=== PATIENT | female | born 1985 | race Caucasian/White ===

== ENCOUNTER 2018-01-27 18:06 | Emergency (ER) | payer OTHER ==
[~2018-01-27] VITALS: Ht 162.6 cm; Wt 121.6 kg
[2018-01-27 18:28] VITALS: Ht 162.6 cm; Wt 121.6 kg
[2018-01-27 19:50] VITALS: BP 144/71
== END 2018-01-27 19:50 | disposition home or self-care (01) ==
LOC: ED 18:06
DX: G43.909 Migraine, unspecified, not intractable, without status migrainosus (principal)
CPT/HCPCS: J1885

== ENCOUNTER → 2018-02-09 | Outpatient (CLI) | payer OTHER | END | disposition home or self-care (01) | LOC: MI 01-23 09:00 | PROC: B030ZZZ Magnetic Resonance Imaging (MRI) of Brain (ICD-10-PCS; principal; 2018-02-09) | DX: G93.2 Benign intracranial hypertension (principal) ==

== ENCOUNTER → 2018-05-02 | Outpatient (CLI) | payer OTHER ==
[2018-05-02 08:26] LABS: PLATELET COUNT 365 x10^3mcL (130-400)
[2018-05-02 08:35] LABS: CALCIUM 8.2 mg/dL (8.5-10.1); CARBON DIOXIDE 25.4 mmol/L (21-32); CHLORIDE SERUM 106 mmol/L (98-107); CREATININE SERUM 0.8 mg/dL (0.6-1.0); GFR1 > 60 mL/min; GLUCOSE SERUM 102 mg/dL (74-106); POTASSIUM SERUM 4.1 mmol/L (3.5-5.1); SODIUM SERUM 140 mmol/L (136-145)
[2018-05-02 08:36] LABS: RED CELL DISTRIBUTION WIDTH 21.3 % (11.5-14.5)
[2018-05-02 08:40] LABS: ALBUMIN 3.6 g/dL (3.4-5.0); ALKALINE PHOSPHATASE 56 U/L (46-116); ALT/SGPT 16 U/L (14-59); AST/SGOT 11 U/L (15-37); BILIRUBIN TOTAL 0.32 mg/dL (0.20-1.00); TOTAL PROTEIN, SERUM 7.6 g/dL (6.4-8.2)
[2018-05-02 08:49] LABS: BAND NEUTROPHIL 0 % (0-10); BASOPHIL 1 % (0-2); MONOCYTE 4 % (0-7); SEGMENTED NEUTROPHILS 55 % (37-75)
[2018-05-02 08:50] LABS: rbc morphology (normal/abnorm) ABNORMAL (NORMAL)
[2018-05-02 08:51] LABS: PLATELET MORPHOLOGY PLATELETS INCREASED
== END | disposition home or self-care (01) ==
LOC: LB 07:48
DX: N92.6 Irregular menstruation, unspecified (principal)

== ENCOUNTER 2018-05-24 06:29 | Emergency (ER) | payer OTHER ==
[~2018-05-24] VITALS: Ht 162.6 cm; Wt 122.9 kg
[2018-05-24 06:35] VITALS: Ht 162.6 cm; Wt 122.9 kg
[2018-05-24 07:53] VITALS: BP 144/94
== END 2018-05-24 07:53 | disposition home or self-care (01) ==
LOC: ED 06:29
DX: S61.210A Laceration without foreign body of right index finger without damage to nail, initial encounter (principal); W26.8XXA Contact with other sharp object(s), not elsewhere classified, initial encounter; Y93.89 Activity, other specified; Y92.89 Other specified places as the place of occurrence of the external cause; Y99.8 Other external cause status
CPT/HCPCS: 90715

== ENCOUNTER → 2018-06-15 | Outpatient (REF) | LOC: LB 10:59 ==

== ENCOUNTER → 2018-07-17 | Outpatient (REF) | LOC: LB 11:13 ==

== ENCOUNTER 2018-07-28 03:25 | Emergency (ER) | payer OTHER ==
[~2018-07-28] VITALS: Ht 162.6 cm; Wt 122.5 kg
[2018-07-28 03:30] VITALS: Ht 162.6 cm; Wt 122.5 kg
[2018-07-28 05:30] VITALS: BP 149/90
== END 2018-07-28 05:30 | disposition home or self-care (01) ==
LOC: ED 03:25
DX: J06.9 Acute upper respiratory infection, unspecified (principal); J45.901 Unspecified asthma with (acute) exacerbation
CPT/HCPCS: J7512; J7613; J7644

== ENCOUNTER → 2018-08-24 | Outpatient (REF) | END | disposition home or self-care (01) | LOC: EH 11:54 | DX: Z77.21 Contact with and (suspected) exposure to potentially hazardous body fluids (principal) ==